=== PATIENT | female | born 1975 | race Caucasian/White ===

== ENCOUNTER 2019-05-01 06:30 | Day surgery (SDC) | payer BC ==
--- OUTSIDE RECORDS SUMMARY | 2019-05-01 06:32 | XMS REPORT ---
:1975 Author Organization e[employer]Works Care Team Providers Name Role Phone Marcus Patten Provider Role Unavailable Allergies, Adverse Reactions, Alerts Substance Reaction Event Type N.K.D.A. Info Not Available Non Drug Allergy Problems Problem Type Condition Code Onset Dates Condition Status Assessment Menorrhagia with regular cycle N92.0 Active Problem Encounter for screening mammogram Z12.31 Active for breast cancer Problem Encounter for gynecological Z01.419 Active examination without abnormal finding Problem Menorrhagia with regular cycle N92.0 Active Assessment Encounter for screening mammogram Z12.31 Active for breast cancer Assessment Uterine leiomyoma, unspecified D25.9 Active location Problem Uterine leiomyoma, unspecified D25.9 Active location Assessment Encounter for gynecological Z01.419 Active examination without abnormal finding Medications Medication Code Code Instructions Start End Date Status Dosage System Date Metaproterenol [facility] 10010-54 Active not defined Sulfate 59-01 Results Name Result Date Reference Range Unit Abnormality Flag URINALYSIS AUTO W/O SCOPE (52135) ----NIT Neg [id number] ----URO 0.2 20170712 ----PROTEIN Neg [id number] ----pH 7.0 20170712 ----BLO Neg [id number] ----GLUCOSE Neg [id number] ----JANAK Neg [id number] ----BILIRUBIN Neg [id number] ----KETONES Neg [id number] ----SPECIFIC GRAVITY 1.020 20170712 Summary Purpose [employer] Submission
--- OUTSIDE RECORDS SUMMARY | 2019-05-01 06:32 | XMS REPORT ---
:1975 Author Organization [employer] Care Team Providers Name Role Phone Marcus Patten Provider Role Unavailable Allergies No Known Allergies Problems Problem Type Condition Code Onset Dates Condition Status Problem Encounter for screening mammogram Z12.31 Active for breast cancer Problem Encounter for gynecological Z01.419 Active examination without abnormal finding Problem Menorrhagia with regular cycle N92.0 Active Problem Uterine leiomyoma, unspecified D25.9 Active location Medications No Known Medications Results No Known Results Summary Purpose [employer] Submission
--- OUTSIDE RECORDS SUMMARY | 2019-05-01 06:32 | XMS REPORT ---
[...] Menorrhagia with regular cycle N92.0 Active Assessment Menorrhagia with regular cycle N92.0 Active Problem Uterine leiomyoma, unspecified D25.9 Active location Assessment Uterine leiomyoma, unspecified D25.9 Active location Medications Medication Code Code Instructions Start End Status Dosage System Date Date Metaproterenol [facility] [address]-85 Active not Sulfate defined Lo Loestrin Fe [facility] 08065136863 1 MG-10 MCG / Active 1 tablet 10 MCG Orally Once a day Results No Known Results Summary Purpose [employer]ClinicalWorks Submission
--- OUTSIDE RECORDS SUMMARY | 2019-05-01 06:32 | XMS REPORT ---
:1975 Author Organization eClinicalWorks Care Team Providers Name Role Phone Marcus Patten Provider Role Unavailable Allergies, Adverse Reactions, Alerts Substance Reaction Event Type N.K.D.A. Info Not Available Non Drug Allergy Problems Problem Type Condition Code Onset Dates Condition Status Assessment Anemia, unspecified type D64.9 Active Problem Uterine leiomyoma, unspecified D25.9 Active location Problem Menorrhagia with regular cycle N92.0 Active Problem Anemia, unspecified type D64.9 Active Assessment Menorrhagia with regular cycle N92.0 Active Problem Encounter for screening mammogram Z12.31 Active for breast cancer Problem Encounter for gynecological Z01.419 Active examination without abnormal finding Medications Medication Code Code Instructions Start End Status Dosage System Date Date Lo Loestrin Fe [facility] 68267592151 1 MG-10 MCG / Active 1 tablet 10 MCG Orally Once a day Metaproterenol [facility] [address]-85 Active not Sulfate defined Results No Known Results Summary Purpose [facility] Submission
--- OUTSIDE RECORDS SUMMARY | 2019-05-01 06:32 | XMS REPORT ---
:1975 Author Organization eClinicalWorks Care Team Providers Name Role Kierra Rodrigo Nora Provider Role Unavailable Allergies, Adverse Reactions, Alerts Substance Reaction Event Type N.K.D.A. Info Not Available Non Drug Allergy Problems Problem Type Condition Code Onset Dates Condition Status Assessment Pharyngitis, unspecified etiology J02.9 Active Problem Anemia, unspecified type D64.9 Active Problem Uterine leiomyoma, unspecified D25.9 Active location Problem Essential hypertension I10 Active Problem Encounter for gynecological Z01.419 Active examination without abnormal finding Problem Menorrhagia with regular cycle N92.0 Active Problem Encounter for screening mammogram Z12.31 Active for breast cancer Medications Medication Code Code Instructions Start End Status Dosage System Date Date Augmentin [facility] 26088017560 875-125 MG Dec 10, Active 1 tablet Orally every 12 2018 hrs Toprol XL [facility] [address]-96 Active not defined Lo Loestrin Fe [facility] 80363022318 1 MG-10 MCG / Active 1 tablet 10 MCG Orally Once a day Results Name Result Date Reference Range Unit Abnormality Flag STREP A RAPID ----Result Positive [id number] Summary Purpose [employer]ClinicalWorks Submission
[2019-05-01] MEDS ORDERED: propofoL 200 MG/20 ML VIAL IV ONE (06:47)
[2019-05-01] MEDS ORDERED: FENTANYL CITR 100 MCG/2 ML ONE (06:48)
[2019-05-01] MEDS ORDERED: LIDOCAINE 2% MPF 5 ML VIAL ONE (06:48)
[2019-05-01] MEDS ORDERED: ONDANSETRON 4 MG/2 ML VIAL ONE (06:50)
[2019-05-01] MEDS ORDERED: MIDAZOLAM HCL 2 MG/2 ML INJ ONE (06:50)
[2019-05-01] MEDS ORDERED: Ringers Lactate 1,000 ML IV ONE (07:09)
[2019-05-01 08:39] VITALS: O2SAT 100
[2019-05-01 11:09] VITALS: BP 119/69; TEMP 98.3
--- NOTE | 2019-05-01 15:19 | OP ---
Date of Procedure: 05/01/2019 Surgeon: Kalyani Torres MD Preoperative Diagnosis: Menorrhagia, leiomyomata, dysmenorrhea. Postoperative Diagnosis: Menorrhagia, leiomyomata, dysmenorrhea. Procedure Performed: Hysteroscopy, dilation and curettage with MyoSure Lite. Anesthesia: General. Specimens: Endometrial curettings. Complications: No complications. Drains: No drains. Condition: Stable. Findings: Intrauterine cavity large, impression of a fibroid in the anterior wall. No evidence of i ntracavitary polyps or lesions. Endometrium thickened, cavity enlarged at least 10-12 cm in sounding length. Indications For Procedure: Patient is a 43-year-old with heavy bleeding, palpable enlarged uterus. Transvaginal ultrasound confirmed a 7 cm fibroid, stripe, thickened cavity with possible mass or the endometrium itself or a polyp versus a fibroid in the cavity. So, for cavity visualization and sampl ing to rule out leiomyosarcoma, atypia, or malignancy of the endometrium. She was brought into the ospital for visualization and removal of a polyp or mass if seen and good sampling of the endometrium to rule out as dictated above. Description Of Procedure: After informed consent was verified, she was taken back to OR, placed in a supine fashion on the operating table. General anesthesia was given. Vulva, vagina, and perineum w ere prepped and draped in a sterile fashion. A speculum was placed to expose the cervix. Anterior l ip grasped with 2 Allis clamps and diagnostic hysteroscopy was performed with the MyoSure lens, and a fter the cavity was entered, there were no masses found and findings as above. The MyoSure Lite deric ce was introduced into the uterine cavity and the myometrium was sampled adequately. The part of the fibroid anteriorly was also sampled going into the myometrium slightly. After the scope was removed, curettings were further performed. After this was handed off for perman ent pathology, instrument, needle, and sponge counts were done and were correct at the end of the magdy e. EBL, less than 100. She was bleeding heavily at the end of the procedure, so vaginal packing was placed. This will be removed at the time of discharge and we will monitor her bleeding. Likely fro m the myometrial biopsy, the bleeding could be heavy. We will give appropriate instructions to the p atient to call with heavy bleeding. After the sampling results are available, then we will decide th e further treatment plan for this patient. The fluid deficit for normal saline was 1000 when this wa s used. Then, the MyoSure Lite device was used for resection of the endometrium and sampling of the myometrium. Patient was extubated in the OR and taken to the PACU in stable condition. She will fol low up with me in 1 week. JL/DEAN Voice ID: [id number] Report ID: [id number]
[2019-05-05] MEDS ORDERED: MEDROXYPROGEST ACET 150 MG/ML IM SCH (21:00)
== END 2019-05-01 10:35 | disposition home or self-care (01) ==
LOC: OR 06:30
PROVIDERS: ATTEND Obstetrics & Gynecology
PROC: 0UJD8ZZ Inspection of Uterus and Cervix, Via Natural or Artificial Opening Endoscopic (ICD-10-PCS; 2019-05-01)
PROC: 0UDB7ZX Extraction of Endometrium, Via Natural or Artificial Opening, Diagnostic (ICD-10-PCS; principal; 2019-05-01 07:30)
DX: N92.0 Excessive and frequent menstruation with regular cycle (principal); D25.9 Leiomyoma of uterus, unspecified; N94.6 Dysmenorrhea, unspecified; I10 Essential (primary) hypertension; Z82.49 Family history of ischemic heart disease and other diseases of the circulatory system
CPT/HCPCS: 81025; 88305; 58558; J2704; J2250; J3010; J7120; J2405

== ENCOUNTER 2019-05-05 18:36 | Inpatient (IN) | payer BC ==
--- OUTSIDE RECORDS SUMMARY | 2019-05-05 18:40 | XMS REPORT ---
[...] End Date Status Dosage System Date Metaproterenol [facility] 62464-91 Active not defined Sulfate 59-01 Results Name Result Date Reference Range Unit Abnormality Flag URINALYSIS AUTO W/O SCOPE (03720) ----NIT Neg [id number] ----URO 0.2 20170712 ----PROTEIN Neg [id number] ----pH 7.0 20170712 ----BLO Neg [id number] ----GLUCOSE Neg [id number] ----JANAK Neg [id number] ----BILIRUBIN Neg [id number] ----KETONES Neg [id number] ----SPECIFIC GRAVITY 1.020 [id number] Summary Purpose [employer] Submission
--- OUTSIDE RECORDS SUMMARY | 2019-05-05 18:40 | XMS REPORT ---
[...] Dosage System Date Date Lo Loestrin Fe [facility] 51195226876 1 MG-10 MCG / Active 1 tablet 10 MCG Orally Once a day Metaproterenol [facility] [address]-20 Active not Sulfate defined Results No Known Results Summary Purpose On license of [facility] Submission
--- OUTSIDE RECORDS SUMMARY | 2019-05-05 18:40 | XMS REPORT ---
[...] End Status Dosage System Date Date Augmentin [facility] 29926915081 875-125 MG Dec 10, Active 1 tablet Orally every 12 2018 hrs Toprol XL [facility] [address]-96 Active not defined Lo Loestrin Fe [facility] 28702311576 1 MG-10 MCG / Active 1 tablet 10 MCG Orally Once a day Results Name Result Date Reference Range Unit Abnormality Flag STREP A RAPID ----Result Positive [id number] Summary Purpose [employer]ClinicalWorks Submission
--- OUTSIDE RECORDS SUMMARY | 2019-05-05 18:40 | XMS REPORT ---
:1975 Author Organization [employer] Care Team Providers Name Role Phone Marcus [...] Medications Results No Known Results Summary Purpose [employer] Submission
--- OUTSIDE RECORDS SUMMARY | 2019-05-05 18:40 | XMS REPORT ---
[...] End Status Dosage System Date Date Metaproterenol [facility] [address]-02 Active not Sulfate defined Lo Loestrin Fe [facility] 79188554728 1 MG-10 MCG / Active 1 tablet 10 MCG Orally Once a day Results No Known Results Summary Purpose eClinicalWorks Submission
[2019-05-05] MEDS ORDERED: Ringers Lactate 1,000 ML IV ONE ×2 (19:09→23:24)
[2019-05-05] MEDS ORDERED: METHYLERGONOVINE 0.2MG/ML AMP IM ONE (19:10)
[2019-05-05 19:37] LABS: Absolute Lymphocytes (CBC) 2.1 K/uL (0.7-4.9); Basophils % 0.7 % (0-1.3); Hematocrit 30.1 % (36.0-45.0); Lymphocytes % 29.6 % (15.3-44.8); MPV 8.9 fL (7.6-11.3)
[2019-05-05 19:40] LABS: Potassium 3.6 mmol/L (3.5-5.1)
[2019-05-05] MEDS ORDERED: FENTANYL CITR 100 MCG/2 ML ONE (20:15)
[2019-05-05] MEDS ORDERED: MEDROXYPROGEST ACET 150 MG/ML IM ONE (20:40)
[2019-05-05 20:55] LABS: Hematocrit 29.8 % (36.0-45.0); MPV 8.7 fL (7.6-11.3)
--- NOTE | 2019-05-05 21:31 | EDPHYS ---
Physician Documentation [facility] Name: Melvi Garcia Age: 43 yrs Sex: Female : 1975 Arrival Date: 05/05/2019 Time: 18:56 Bed 28 Private MD: ED Physician Parisa Rosales HPI: 05/04 19:11 This 43 yrs old Female presents to ER via Unassigned with complaints of snw vaginal bleeding. 19:11 The patient presents with vaginal bleeding that is heavy, with clots. Onset: The snw symptoms/episode began/occurred suddenly, 1 hour(s) ago, and became worse and became persistent. Associated signs and symptoms: Pertinent positives: vaginal bleeding, dizziness, lightheadedness. Severity of symptoms: At their worst the symptoms were severe. The patient has not experienced similar symptoms in the past. The patient has been recently seen by a physician: Dr. Torres. pt had hysteroscopy for biopsy of fibroid on . Hemorrhage started about one hour prior to arrival. Historical: - Allergies: 20:43 No Known Allergies; ls4 - Home Meds: 20:43 metoprolol tartrate 50 mg Oral tab once daily [Active]; ls4 - PMHx: 20:43 Hypertension; ls4 - PSHx: 20:43 None; ls4 - Immunization history:: Adult Immunizations up to date. - Social history:: Smoking status: Patient denies any tobacco usage or history of. ROS: 19:09 Constitutional: Negative for fever, chills, and weight loss, Eyes: Negative for injury, snw pain, redness, and discharge, ENT: Negative for injury, pain, and discharge, Neck: Negative for injury, pain, and swelling, Cardiovascular: Negative for chest pain, palpitations, and edema, Respiratory: Negative for shortness of breath, cough, wheezing, and pleuritic chest pain, Abdomen/GI: Negative for abdominal pain, nausea, vomiting, diarrhea, and constipation, Back: Negative for injury and pain, MS/Extremity: Negative for injury and deformity, Skin: Negative for injury, rash, and discoloration, Neuro: Negative for headache, weakness, numbness, tingling, and seizure, Psych: Negative for depression, anxiety, suicide ideation, homicidal ideation, and hallucinations. 19:09 : Positive for vaginal bleeding. Exam: 19:03 Constitutional: This is a well developed, well nourished patient who is awake, alert, snw and in mild acute distress. Head/Face: Normocephalic, atraumatic. Eyes: Pupils equal round and reactive to light, extra-ocular motions intact. Lids and lashes normal. Conjunctiva and sclera are non-icteric and not injected. Cornea within normal limits. Periorbital areas with no swelling, redness, or edema. ENT: Nares patent. No nasal discharge, no septal abnormalities noted. Tympanic membranes are normal and external auditory canals are clear. Oropharynx with no redness, swelling, or masses, exudates, or evidence of obstruction, uvula midline. Mucous membranes moist. Neck: Trachea midline, no thyromegaly or masses palpated, and no cervical lymphadenopathy. Supple, full range of motion without nuchal rigidity, or vertebral point tenderness. No Meningismus. Chest/axilla: Normal chest wall appearance and motion. Nontender with no deformity. No lesions are appreciated. Cardiovascular: Regular rate and rhythm with a normal S1 and S2. No gallops, murmurs, or rubs. Normal PMI, no JVD. No pulse deficits. Respiratory: Lungs have equal breath sounds bilaterally, clear to auscultation and percussion. No rales, rhonchi or wheezes noted. No increased work of breathing, no retractions or nasal flaring. Abdomen/GI: Soft, non-tender, with normal bowel sounds. No distension or tympany. No guarding or rebound. No evidence of tenderness throughout. Back: No spinal tenderness. No costovertebral tenderness. Full range of motion. Pelvic Exam: Normal external genitalia. Speculum exam with open cervical os, bleeding steadily. large clots filling vaginal vault. Normal uterus. packed with kerlix. Skin: Warm, dry with normal turgor. Normal color with no rashes, no lesions, and no evidence of cellulitis. MS/ Extremity: Pulses equal, no cyanosis. Neurovascular intact. Full, normal range of motion. 19:03 Neuro: shaky, states dizziness. Vital Signs: 18:56 BP 136 / 86; Pulse 61; Resp 14; Temp 98.5(O); Pulse Ox 100% on R/A; Pain 4/10; ls4 20:00 BP 130 / 77; Pulse 58; Resp 14; Pulse Ox 100% on R/A; Weight 61.23 kg; Height 5 ft. 4 ls4 in. (162.56 cm); Pain 3/10; 22:17 BP 128 / 74; Pulse 62; Resp 14; Temp 98.4; Pulse Ox 99% on R/A; Pain 3/10; ls4 20:00 Body Mass Index 23.17 (61.23 kg, 162.56 cm) ls4 MDM: 19:09 Data reviewed: vital signs, nurses notes. Data interpreted: Pulse oximetry: on room air snw is 100 %. Interpretation: hypoxia. Plan: O2 by Mask applied. Counseling: I had a detailed discussion with the patient and/or guardian regarding: the historical points, exam findings, and any diagnostic results supporting the discharge/admit diagnosis. Physician consultation: Kalyani Torres MD was called at 19:10, regarding consult, patient's condition, need to come to ED to see patient, answering service contacted and Dr. Torres's cell called - messages left with both. 19:20 Patient medically screened. snw 20:33 Physician consultation: in the emergency department to see patient at 20:05. ED course: snw Spoke with Dr. Torres, instructed to remove kerlix, obtain 2nd H/H now as she is on her way to ED for eval. 20:52 Physician consultation: Dr. Torres attempting transfer to [facility] for uterine artery snw embolization. 21:23 ED course: Pt pale, doughy, HR 77 bpm, Dr. Torres at bedside placing intrauterine, snw balloon. 05/04 18:56 Order name: Basic Metabolic Panel; Complete Time: 19:41 ls4 05/04 18:56 Order name: CBC with Diff; Complete Time: 19:41 ls4 05/04 18:56 Order name: Type And Screen [facility] 05/04 19:52 Order name: Bb Add On snw 05/04 19:54 Order name: Packed Rbc Leukored As-1 snw 05/04 19:55 Order name: ABO/RH typing EDID 05/04 19:55 Order name: Antibody Screen [facility] 05/04 20:43 Order name: CBC w/o diff; Complete Time: 21:09 ls4 05/04 21:30 Order name: Packed RBCs (Additional Unit) EDMS 05/04 22:51 Order name: CBC with Automated Diff EDMS 05/04 18:56 Order name: IV Saline Lock; Complete Time: 19:03 ls4 05/04 18:56 Order name: Labs collected and sent; Complete Time: 19:03 ls4 05/04 18:56 Order name: NPO; Complete Time: 19:03 ls4 05/04 18:56 Order name: Urine Dipstick-Ancillary (obtain specimen); Complete Time: 19:33 ls4 05/04 19:54 Order name: Consent for Blood Transfusion; Complete Time: 21:22 snw 05/04 19:54 Order name: IV Saline Lock; Complete Time: 20:54 snw 05/04 19:55 Order name: Misc. Order: repeat CBC at 2100; Complete Time: 20:53 snw Administered Medications: 19:10 Drug: METHERgine 0.2 mg Route: IM; Site: right deltoid; ls4 19:32 Follow up: Response: No adverse reaction ls4 19:10 Drug: Lactated Ringers Solution 1000 ml Route: IV; Rate: 150 ml/hr; Site: right ls4 antecubital; 20:10 Drug: fentaNYL (PF) 25 mcg Route: IVP; Site: left antecubital; ls4 20:30 Follow up: Response: No adverse reaction ls4 21:23 Drug: DepoProvera - medroxyPROGESTERone 150 mg Route: IM; Site: left deltoid; ls4 21:24 Follow up: Response: No adverse reaction ls4 22:11 Follow up: Response: No adverse reaction ls4 Disposition: 05/05 01:33 Co-signature as Attending Physician, Parisa Rosales MD. ma2 Disposition: 05/05/19 21:31 Hospitalization ordered by Kalyani Torres for Observation. Preliminary diagnosis are Abnormal uterine and vaginal bleeding, unspecified, Anemia, unspecified. - [facility]. - Status is Observation. ls4 - Condition is Stable. - Problem is new. - Symptoms have worsened. Signatures: Dispatcher [employer] EDID Martha Flowers, CLOTH CUTTER-C CLOTH CUTTER-Csnw Alie Bailey, Parisa Quintana RN, MD MD ma2 Citlalli Black, RN RN ls4 Corrections: (The following items were deleted from the chart) 05/04 19:41 18:57 ABO/RH TYPING+[id number].LAB.BRZ ordered. EDID EDMS 21:58 21:31 Hospitalization Ordered by Kalyani Torres MD for Observation. Preliminary cg diagnosis is Abnormal uterine and vaginal bleeding, unspecified; Anemia, unspecified. Bed [facility]. Status is Observation. Condition is Stable. Problem is new. Symptoms have worsened. snw 23:15 21:58 05/05/2019 21:31 Hospitalization Ordered by Kalyani Torres MD for Observation. ls4 Preliminary diagnosis is Abnormal uterine and vaginal bleeding, unspecified; Anemia, unspecified. Bed requested for [facility]. Status is Observation. Condition is Stable. Problem is new. Symptoms have worsened. cg
--- NOTE | 2019-05-05 21:31 | ER ---
Nurse's Notes [facility] Name: Melvi Garcia Age: 43 yrs Sex: Female : 1975 Arrival Date: 05/05/2019 Time: 18:56 Bed 28 Private MD: Diagnosis: Abnormal uterine and vaginal bleeding, unspecified;Anemia, unspecified Presentation: 05/04 18:56 Chief complaint: EMS states: Pt HAD PROCEDURE DONE A FEW DAYS AGO AND IS NO ls4 "HEMORRHAGING". PT HAS VAGINAL BLEEDING. 18:56 Coronavirus screen: The patient has NOT traveled to a country currently being monitored ls4 by the [facility] within the last 14 days. Proceed with normal triage procedures. Ebola Screen: No symptoms or risks identified at this time. 18:56 Method Of Arrival: EMS: [facility] ls4 20:00 Initial Sepsis Screen: Does the patient meet any 2 criteria? No. Patient's initial ls4 sepsis screen is negative. Does the patient have a suspected source of infection? No. Patient's initial sepsis screen is negative. Risk Assessment: Do you want to hurt yourself or someone else? Patient reports no desire to harm self or others. Care prior to arrival: Medication(s) given: Normal saline infusion, 500 mL, IV initiated. 20 GA, in the left antecubital area. 20:00 Acuity: NAVEED 2 ls4 Triage Assessment: 18:56 General: Appears comfortable, uncomfortable, Behavior is calm, cooperative. ls4 18:56 Pain: Denies pain. Neuro: Level of Consciousness is awake, alert, Oriented to person, ls4 place, time, situation. Cardiovascular: Reports None Denies chest pain, diaphoresis, fatigue, lightheadedness, nausea, palpitations, shortness of breath, syncope, vomiting, Capillary refill < 3 seconds Patient's skin is warm and dry. Respiratory: Airway is patent Respiratory effort is even, unlabored, Respiratory pattern is regular. GI: No deficits noted. : Reports vaginal bleeding that is bright red, with clots, heavy flow STARTED HEAVILY LAST NIGHT. AND INCREASED TODAY. Derm: No deficits noted. No signs and/or symptoms reported regarding the dermatologic system. Musculoskeletal: No deficits noted. No signs and/or symptoms reported regarding the musculoskeletal system. Historical: - Allergies: 20:43 No Known Allergies; ls4 - Home Meds: 20:43 metoprolol tartrate 50 mg Oral tab once daily [Active]; ls4 - PMHx: 20:43 Hypertension; ls4 - PSHx: 20:43 None; ls4 - Immunization history:: Adult Immunizations up to date. - Social history:: Smoking status: Patient denies any tobacco usage or history of. Screenin:53 Abuse screen: Denies threats or abuse. Denies injuries from another. Nutritional ls4 screening: No deficits noted. Tuberculosis screening: No symptoms or risk factors identified. Fall Risk None identified. Assessment: 19:15 Reassessment: Patient appears in no apparent distress at this time. JODEE RAPP IN ls4 ROOM DOING PELVIC EXAM. ASSISTED WITH SET UP AND CHAPERONED BY PIOTR. PT TOLERATED WELL. 19:15 : SEE SLACKLINE OPERATOR NOTE. ls4 20:00 Reassessment: Patient appears in no apparent distress at this time. Patient and/or ls4 family updated on plan of care and expected duration. Pain level reassessed. Patient is alert, oriented x 3, equal unlabored respirations, skin warm/dry/pink. PT REPORTS THAT SHE HAS INCREASED CRAMPING. JODEE NOTIFIED. ORDER FOR FENTANYL RECEIVED. AND GIVEN. 21:00 Reassessment: Patient appears in no apparent distress at this time. Patient and/or ls4 family updated on plan of care and expected duration. Pain level reassessed. Patient is alert, oriented x 3, equal unlabored respirations, skin warm/dry/pink. DR TORRES AT BEDSIDE WITH KYLE PRE[employer] TRAFFIC SUPERINTENDENT AND ASSISTING. SEE DR GARCIA NOTE. 21:51 General: SEE TRIAGE. Pain: Complains of pain in suprapubic area Pain currently is 2 out ls4 of 10 on a pain scale. Neuro: Level of Consciousness is awake, alert, obeys commands. Cardiovascular: Capillary refill < 3 seconds Patient's skin is warm and dry. Respiratory: Airway is patent Respiratory effort is even, unlabored, Breath sounds are clear bilaterally. Vital Signs: 18:56 BP 136 / 86; Pulse 61; Resp 14; Temp 98.5(O); Pulse Ox 100% on R/A; Pain 4/10; ls4 20:00 BP 130 / 77; Pulse 58; Resp 14; Pulse Ox 100% on R/A; Weight 61.23 kg; Height 5 ft. 4 ls4 in. (162.56 cm); Pain 3/10; 22:17 BP 128 / 74; Pulse 62; Resp 14; Temp 98.4; Pulse Ox 99% on R/A; Pain 3/10; ls4 20:00 Body Mass Index 23.17 (61.23 kg, 162.56 cm) ls4 ED Course: 18:50 Patient arrived in ED. aa5 18:55 Initial lab(s) drawn, by me, sent to lab. Inserted saline lock: 18 gauge in right aa5 antecubital area, using aseptic technique. Blood collected. 18:56 Maintain EMS IV. Dressing intact. Good blood return noted. Site clean \\T\\ dry. Gauge \\T\\ ls 4 site: 20 G RT AC. 18:56 Patient maintains SpO2 saturation greater than 95% on room air. ls4 18:57 Citlalli Black RN is Primary Nurse. ls4 18:57 Pulse ox on. NIBP on. ls4 18:57 Arm band placed on. ls4 19:00 Jodee Rapp FNP-C is [facility]. snw 19:00 Parisa Rosales MD is Attending Physician. snw 20:28 Triage completed. ls4 20:30 Assist provider with pelvic exam: Performed by Kalyani Torres MD Patient tolerated mb4 well. 20:44 ABO/RH typing Sent. ls4 20:54 Antibody Screen Sent. ls4 20:54 Bb Add On Sent. ls4 20:55 Safety checks: Family/friend present: yes. Bed in low position. Call light in reach. mb4 Side rails up X 1. Warm blanket given. Linen changed. 21:29 Kalyani Torres MD is Hospitalizing Provider. snw Administered Medications: 19:10 Drug: METHERgine 0.2 mg Route: IM; Site: right deltoid; ls4 19:32 Follow up: Response: No adverse reaction ls4 19:10 Drug: Lactated Ringers Solution 1000 ml Route: IV; Rate: 150 ml/hr; Site: right ls4 antecubital; 20:10 Drug: fentaNYL (PF) 25 mcg Route: IVP; Site: left antecubital; ls4 20:30 Follow up: Response: No adverse reaction ls4 21:23 Drug: DepoProvera - medroxyPROGESTERone 150 mg Route: IM; Site: left deltoid; ls4 21:24 Follow up: Response: No adverse reaction ls4 22:11 Follow up: Response: No adverse reaction ls4 Outcome: 21:31 Decision to Hospitalize by Provider. snw 22:16 Admitted to L \\T\\ D, Report called to MADISON BARRAGAN RN ls4 22:41 Condition: stable ls4 22:41 Instructed on the need for admit. 23:15 Patient left the ED. ls4 Signatures: Jodee Rapp, GRANULATOR OPERATOR-C GRANULATOR OPERATOR-Csnw Tawanna Lopez RN RN aa5 Bela Pretty mb4 Citlalli Black RN RN ls4 Corrections: (The following items were deleted from the chart) 19:03 18:56 Patient arrived in ED. ls4 aa5 21:50 20:57 Pulse ox on. NIBP on. mb4 ls4 22:30 20:00 Reassessment: Patient appears in no apparent distress at this time. Patient ls4 and/or family updated on plan of care and expected duration. Pain level reassessed. Patient is alert, oriented x 3, equal unlabored respirations, skin warm/dry/pink. ls4
[2019-05-05 22:50] LABS: Basophils % 0.4 % (0-1.3); Hematocrit 29.9 % (36.0-45.0); Lymphocytes % 7.8 % (15.3-44.8); MPV 9.3 fL (7.6-11.3); RBC Red Blood Cell Count 3.28 M/uL (3.86-4.86)
[2019-05-05 23:24] LABS: Blood Morphology Comment NOT SEEN (NOT SEEN); Platelet Estimate ADEQ
[2019-05-06 00:16] VITALS: BMI 3254.6
[2019-05-06] MEDS ORDERED: CEFAZOLIN 2 GM in NA CHLORIDE 0.9% 100 ML IVPB SCH (00:45)
[2019-05-06] MEDS ORDERED: MORPHINE 2 MG/ML SYR IV PRN (00:45)
[2019-05-06] MEDS ORDERED: Ringers Lactate 1,000 ML IV SCH (00:45)
--- NOTE | 2019-05-06 01:48 | HP ---
Date of Admission: 05/05/2019 Admitting Diagnoses: Menorrhagia, fibroid, and acute increase in bleeding and pelvic pain History Of Present Illness: Patient is a 43-year-old postoperative day #4 after hysteroscopy, endome trial curettage and biopsy of the myoma hysteroscopically with MyoSure who had significant bleeding a t the time of the procedure, but completely stopped, was discharged home and had no bleeding for 3 da ys, restarted bleeding last night with a gush of blood, but this evening her bleeding had been bright red and continuous. Patient was not feeling well and had pain and came into the ER. No lower urina ry tract symptoms. No bowel problems. No other issues. Review of Systems: Negative. No respiratory, cardiovascular, or neurological symptoms. She has mild nausea that is int ermittent. Past Medical History: Significant for hypertension. Current Medications: Metoprolol 50 mg daily once a day. Allergies: NO KNOWN DRUG ALLERGIES. Past Surgical History: Tubal ligation in 2007, LASIK surgery in 1999, wisdom teeth in 1998. Family History: Hypertension. No breast, ovarian, uterine, or colon cancers. Social History: No tobacco, occasional alcohol, no drug use. Gynecologic History: She is 4, para 4, and all 4 vaginal deliveries and she had a tubal ligation. Physical Examination: Vital Signs: Her temperature 98.5, 136/86 blood pressure, 61 pulse, 14 respirations, and saturating 100% on room air. General: She appeared to be slightly pale, diaphoretic, but no other acute distress. Head and Neck: Slight pallor. Anicteric. Neck; no jugular venous distention or adenopathy. Lungs: Clear. Heart: Regular in rate and rhythm. Abdomen: Soft, nondistended. Minimally tender in the suprapubic area. No rebound. No hepatospleno megaly or hernia. Extremities: No edema or calf tenderness. Pelvic: Vulva and vagina pink, normal. Labia normal. Bartholin's periurethral and Buchtel's glands n egative. Vagina with some clots and the cervix slightly dilated and on clearing the clot there is a good amount of bright red bleeding coming through the cervix that was visualized after a couple of mi nutes of observation and the blood was ongoing. Uterine exam performed and about 12 to 14 week sized , the myoma palpable, slightly tender. No adnexal tenderness. No cervical motion tenderness. Specu lum removed and pad counts started. Patient had a transvaginal ultrasound in the office, she has a 7 cm leiomyoma that probably is the re ason for her heavy bleeding. Also has urinary frequency due to this. Her hemoglobin here 10 g to start with and the repeat was 10 g, which is being repeated to verify whe ther it is reliable. Assessment And Plan: 1.Menorrhagia from abnormal uterine bleeding from leiomyomata, likely sampling was done about 4 days ago. The report was reviewed today in [facility] and had chronic endometritis, benign leiomyoma, and no atypia or malignancy. So plan is to perform a hysterectomy for treatment of her bleeding and this can be done later tomorrow morning as the patient is continuing to bleed. 2.Leiomyoma. No evidence of any leiomyosarcoma, so safe to go onto doing a laparoscopic hysterectom y and then possibly morcellation. Discussed about the options of uterine artery embolization observa tion and treatment with medication, depot medroxyprogesterone has been given at this time to stop her bleeding acutely. Patient's options of myomectomy and the medical treatment like Lupron were all re viewed with the patient. Risks of hysterectomy including bleeding, infection, injury to the bowel, b ladder, ureters, and possibly mini lap, recovery time of the surgery were all reviewed with the patie nt, her mom, and her , everyone was present in the room and consented for the procedure. We w ill give 2 g of Ancef prior to surgery. 3.Blood-loss anemia, likely acute. Plan serial H and H. we will admit the patient overnight and ob serve. We will keep a pad count. If there is significantly increased flow, then plan is to place ei ther a 30 mL Johns balloon or a Bakri balloon inside the uterine cavity for occlusion and then procee d with the surgery in the morning. Cereal I's and O's will be kept. She will be kept n.p.o., LR to be started. Attempted to transfer the patient for any acute uterine artery embolization, but [facility] or interventional procedures not available at night until tomorrow. It can be talked to Vinayak villarreal after being connected from transfer center, so plan is to keep the patient here in-hous e and patient and the are aware that there are no interventional services here in our [facility] lIndra PARIKH/DEAN Voice ID: [id number]
[2019-05-06 03:43] LABS: Hematocrit 27.2 % (36.0-45.0)
[2019-05-06] MEDS ORDERED: MORPHINE 4 MG/ML SYR IV PRN (07:16)
[2019-05-06] MEDS ORDERED: METOPROLOL TAR 50 MG TAB PO ONE (08:00)
[2019-05-06] MEDS ORDERED: ONDANSETRON 4 MG/2 ML VIAL ONE (08:03)
[2019-05-06] MEDS ORDERED: Ringers Lactate 1,000 ML IV ONE ×2 (08:05→11:37)
[2019-05-06] MEDS ORDERED: dexAMETHasone 10 MG/ML VIAL ONE (08:12)
[2019-05-06] MEDS ORDERED: FENTANYL CITR 250 MCG/5 ML ONE (08:12)
[2019-05-06] MEDS ORDERED: ROCURONIUM 50 MG/5 ML VIAL IV ONE (08:12)
[2019-05-06] MEDS ORDERED: LIDOCAINE 2% MPF 5 ML VIAL ONE (08:12)
[2019-05-06] MEDS ORDERED: propofoL 200 MG/20 ML VIAL IV ONE (08:12)
[2019-05-06] MEDS ORDERED: MIDAZOLAM HCL 2 MG/2 ML INJ ONE (08:13)
[2019-05-06] MEDS ORDERED: CEFAZOLIN/SWI 1gm 2 GM/20 ML SYR ONE (08:49)
[2019-05-06] MEDS: BUPIVACAINE 0.25% PF 30 ML VIAL ONE ×2 (09:35→11:24)
[2019-05-06] MEDS ORDERED: KETOROLAC 30 MG/ML INJ ONE (11:24)
[2019-05-06] MEDS ORDERED: MORPHINE 10 MG/ML VIAL ONE (11:31)
[2019-05-06] MEDS ORDERED: GLYCOPYRROLATE 0.2 MG/ML SYR ONE (11:43)
[2019-05-06] MEDS ORDERED: SCOPOLAMINE HYDROBROMIDE PATCH TD ONE (11:45)
[2019-05-06 12:02] VITALS: O2SAT 100
[2019-05-06] MEDS ORDERED: IBUPROFEN 600 MG TAB PO PRN (12:09)
[2019-05-06] MEDS ORDERED: HYDROCODONE/APAP 5/325 MG TAB PO PRN ×2 (12:11)
[2019-05-06] MEDS ORDERED: PROMETHAZINE INJ 25 MG/ML AMP IV PRN (12:12)
[2019-05-06] MEDS ORDERED: PROMETHAZINE 25 MG TABLET PO PRN (12:13)
[2019-05-06] MEDS ORDERED: MEPERIDINE HCL 25 MG/0.5 ML ONE (12:55)
[2019-05-06 16:36] VITALS: BP 135/77; TEMP 97
[2019-05-07] MEDS ORDERED: METOPROLOL XL 50 MG TAB PO SCH (09:00)
--- NOTE | 2019-05-07 17:46 | OP ---
Date of Procedure: 05/06/2019 Surgeon: Kalyani Torres MD Flat Cutter: Sissy Marte. Preoperative Diagnoses: Heavy menstrual bleeding, leiomyomata. Postoperative Diagnoses: Heavy menstrual bleeding, leiomyomata. Procedure Performed: Total laparoscopic hysterectomy, bilateral salpingectomy, bilateral ovariopexy, vaginal morcellation of the fibroid in the uterus. Anesthesia: General endotracheal. Estimated Blood Loss: Minimal. Complications: None. Drains: None. Condition: Stable. Findings: Large myoma in the midportion of the anterior wall deviating the uterus to the left side. No evidence of endometriosis. Both the ureters undistorted. Description Of Procedure: The patient is a 43-year-old female with heavy bleeding, fibroids, enlarge d uterus, sampled for biopsy. No evidence of chronic endometritis. No evidence of any atypia or mal ignancy. Myoma was benign. So, plan was to proceed with definitive treatment of this. The patient came back on postop day #4 wi th heavy bleeding after 3 days of no bleeding past the hysteroscopic procedure. When she came into t ER on the night before the procedure, she was bleeding heavy and her hemoglobin was down to 10 g, but hemodynamically stable. Progesterone 150 mg was given to the patient. Her bleeding had stopped overnight on observation. However, given the fact that she had restarted bleeding after the biopsy 3 days later, I am worried that this could happen again and recommended to have whatever definitive pr ocedure she was going to have. She was counseled on having uterine artery embolization, myomectomy o r laparoscopic hysterectomy with bilateral salpingectomy. The patient proceeded with a hysterectomy option and so I brought her to the OR. After consent was re-verified, , mom present, bleeding , infection, injury to the bowel, bladder, and ureters all reviewed with the patient. Risk of transf usion as well. Then, she was consented and taken to the OR. 2 g of Ancef given. She was placed in a supine fashion. General anesthesia given, placed in a dorsal lithotomy position in Devonte stirrups. Arms tucked by the side. SCDs started. Time-out done and then the abdomen, vulva, vagina, and per ineum prepped and draped in a sterile fashion. Pelvic exam performed. Uterus anteflexed and mobile. The bilateral sides were free, able to see the impression of the fibroid in the left lower quadrant . Then, Johns was placed to drain the bladder. Large VCare placed in the uterus to manipulate. Thi s area was then draped. A 1 cm infraumbilical incision made after Marcaine injected. Incision on th e fascia and peritoneum sharply. S retractor was placed, Melly introduced. After insufflation, sit e of entry checked, unremarkable. 10 mm suprapubic and 5 mm left lower quadrant ports were placed under direct vision. Patient was brian anita in Trendelenburg and the visualization of both ureters was done without any distortion. They wer e found to be coursing in the normal path without any distortions. Then, both tubes and ovaries unre markable. The fibroid was obstructing the vision of the left broad ligament. There was a tiny littl e fibroid on the round ligament on the right. This was resected. Then, hysterectomy started. The p eritoneum below the left round ligament was picked up, incised, and the bladder flap raised all the w ay to the other side. Then, round ligament taken down, tube taken out with the LigaSure and then marco ro-ovarian ligament and the rest of the mesosalpinx taken down. Then posterior peritoneum taken down to the left uterosacral and then broad ligament taken down to skeletonize the vessels. On the oppos ite side, similar dissection was performed, utero-ovarian ligament taken down mesosalpinx tube, round ligament and broad ligament leaves were . Anterior leaf connected to finish the bladder fl ap and posterior leaf taken to the right uterosacral, than broad ligament taken down to skeletonize t he vessels on the side. The fibroid took all the way down close to the vaginal wall anteriorly where the VCare cup was seen, so carefully the bladder was dissected inferiorly creating space on the ante rior vaginal wall for at least a cm and a half, so then once this was cleared, vessels were taken mariel n. Cardinal ligament on the right then on the left. Then circumferential colpotomy for detaching th e specimen with a monopolar hook blade. After both pedicles were taken down with the help of the LigaSure, then thorough irrigation and sucti on were performed. The uterus was held with the cervix and the vagina with the Allis clamps. Then, tube on the right side was resected completely. The left was already taken. The ovariopexy was perf ormed with 3-0 Monocryl until the base of the round ligament on both sides. Then, went on to vaginal ly morcellate the uterine specimen. The Acosta retractor placed in the posterior aspect and a small D was in the anterior morcellation with a 10 blade of the uterus and the fibroid and the entire specimen was removed vaginally. Once this w as performed, a sponge and a glove was placed for pneumo-occlusion, then went back up after changing gown and gloves. Thorough irrigation and suction performed. 0 Vicryl suture for 2 angle stitches and 3 [id number] ht in the middle resuspending the base of the uterosacral to the apex of the vagina. Excellent closu re and support was optimal. No need for a separate uterosacral suspension stitch was noted. Thoroug h irrigation and suction performed again. Excellent hemostasis at all pedicles. Ovaries unremarkabl e. The gas was desufflated. All ports were removed. All ports were injected with Marcaine at the begin andrea and the end of the procedure. Then, the fascia at the umbilicus closed with a tag of 0 Vicryl s utures tied to each other, simple chromic suture in the subcutaneous tissues, simple 0 Vicryl suture for fascial closure in suprapubic area and all skin incisions closed with the help of 4-0 Vicryl sutu res in interrupted fashion. Johns was removed. Vaginal sponge was removed. Instrument, needle and sponge counts were done and were correct at the end of the case. The patient tolerated the procedure well. She was recovered from anesthesia and taken to PACU in a stable condition. [facility] and then discharged home. She was given scopolamine patch and then Zofran and No rco. JL/FLAKITAL Voice ID: [id number] Report ID: [id number]
== END 2019-05-06 18:30 | disposition home or self-care (01) | DRG 742 ==
LOC: ER 18:36 → ERHOLD 21:54 → 2ND-WC 22:21
PROVIDERS: ADMIT Obstetrics & Gynecology; ATTEND Obstetrics & Gynecology
PROC: 0UT9FZZ Resection of Uterus, Via Natural or Artificial Opening With Percutaneous Endoscopic Assistance (ICD-10-PCS; principal; 2019-05-05)
PROC: 0UT7FZZ Resection of Bilateral Fallopian Tubes, Via Natural or Artificial Opening With Percutaneous Endoscopic Assistance (ICD-10-PCS; 2019-05-05)
PROC: 0US24ZZ Reposition Bilateral Ovaries, Percutaneous Endoscopic Approach (ICD-10-PCS; 2019-05-05)
DX: D25.9 Leiomyoma of uterus, unspecified (principal); D62 Acute posthemorrhagic anemia; N92.0 Excessive and frequent menstruation with regular cycle; I10 Essential (primary) hypertension
CPT/HCPCS: 36415; 80048; 85014; 85018; 85025; 85027; 86850; 86900; 86901; 88305; 88307; 96372; 96374; 99285; J0690; J1050; J1100; J2175; J2210; J2250; J2270; J2405; J2550; J2704; J3010; J7120

== ENCOUNTER → 2023-04-17 | Emergency (ER) | payer BC ==
[~2023-04-17] MED LIST: NA CHLORIDE 0.9% 500 ML ONE
--- OUTSIDE RECORDS SUMMARY | 2023-04-17 20:01 | XMS REPORT | Continuity of Care Document ---
Author Name Unknown Address [address] [facility] [address] [place] [address] [facility] Address [address] [facility] [address] [place] [address] Care Team Providers Care Renewable Energy Engineer Name Role Phone Gaetano Kamara MD Primary Care Physician [phone] [email or web address] Attending Clinician Unavaila ble ELIZABETH GOULD Attending Clinician Unavailable SHELLI SAUER Attending Clinician Unavaila ble LAB90 Attending Clinician Unavailable LAB47 Attending Clinician Unavailable CLARA JONES Attending Clinician Unavailable Clara Jones MD Attending Clinician [phone] KENYA BROWN Attending Clinician Kenya Thomas MD Attending Clinician [phone] [id number] Attending Clinician Unavailable GAETANO KAMARA Attending Clinician Unavailable GIANA COVINGTON Attending Clinician Unavai lable [id number] Attending Clinician Unavailable [email or web address] Admitting Clinician Unavaila ble Payers Payer Name Policy Type Policy Number Effective Date Expirati on Date Source [place] [id number] 2017 00:00:00 BCBS 2 [id number] 2017 00:00:00 Problems Condition Name Condition Details Condition Category Status Onset Date Resolution Date Last Treatment Date Treating Clinician Comments Source Seasonal allergic rhinitis due to pollen Seasonal allergic rhinitis due to pollen Disease Active 2022-02 0-13 00:00: 00 Seema Pollack - Externa beelm Arthralgia of both hands Arthralgia of both hands Disease Active 4 00:00: 00 Seema Pollack - Raha belem Other fatigue Other fatigue Disease Active 4 00:00: 00 Seema Monreala belem Family history of systemic lupus erythemato wyatt Family history of systemic lupus erythemato wyatt Disease Active 06-08 00:00: 00 Seema Monreala belem Right upper quadrant abdominal pain Right upper quadrant abdominal pain Disease Active 06-08 00:00: 00 Seema Monreala belem Well adult exam Well adult exam Disease Active 2021-02 00:00: 00 Seema Monreala belem Gastroesop hageal reflux disease without esophagiti s Gastroesop hageal reflux disease without esophagiti s Disease Active 2021-02 00:00: 00 Seema Monreala belem History of kidney stones History of kidney stones Disease Active 2021-02 00:00: 00 Seema Monreala belem Essential hypertensi on Essential hypertensi on Disease Active 10-13 00:00: 00 Seema Monreala belem Anemia Anemia Disease Active 817 00:00: 00 Seema Goddard Externa belem Iron deficiency anemia Iron deficiency anemia Disease Active 10-13 00:00: 00 Seema Monreala belem Nonrheumat ic mitral valve regurgitat ion Nonrheumat ic mitral valve regurgitat ion Disease Active 8-17 00:00: 00 Seema Pollack - Externa belem Cystic kidney disease Cystic kidney disease Disease Active 10-13 00:00: 00 Seema Pollack MVP (mitral valve prolapse) MVP (mitral valve prolapse) Disease Active 817 00:00: 00 Seema Pollack - Externa belem Musculoske letal neck pain Musculoske letal neck pain Disease Active 06-23 00:00: 00 Seema Pollack - Externa l Menorrhagi a with regular cycle Menorrhagi a with regular cycle Problem Active [facility] Encounter for screening mammogram for breast cancer Encounter for screening mammogram for breast cancer Problem Active [facility] Encounter for gynecologi bushra examinatio n without abnormal finding Encounter for gynecologi bushra examinatio n without abnormal finding Problem Active [facility] Uterine leiomyoma, unspecifie d location Uterine leiomyoma, unspecifie d location Problem Active [facility] Anemia, unspecifie d type Anemia, unspecifie d type Problem Active [facility] Pharyngiti s, unspecifie d etiology Pharyngiti s, unspecifie d etiology Diagnosis Active [facility] Essential hypertensi on Essential hypertensi on Problem Active [facility] Social History Social Habit Start Date Stop Date Quantity Comments Source Gender identity 2020-12-01 11:59:10 Identifies as female gender (finding) Seema Pollack - External Sexual orientation 2020-12-01 11:59:10 Heterosexual (finding) Seema Pollack - External History SDOH Alcohol Frequency Seema figueroa - External History SDOH Alcohol Std Drinks Seema rolle - External History SDOH Alcohol Binge Seema Pollack - External Exposure to SARS-CoV-2 (event) Not sure Seema rolle Alcohol intake 2022-12-09 00:00:00 2022-12-09 00:00:00 .14 /d Seema Pollack - External History of Social function 2022-11-14 00:00:00 2022-11-14 00:00:00 Seema Pollack - External Tobacco use and exposure 2022-06-08 00:00:00 2022-06-08 00:00:00 Smokeless tobacco non-user Seema Pollack - External Alcohol Comment 2021-12-08 00:00:00 2021-12-08 00:00:00 mixed drink weekly, twice per week Seema Pollack - External Education 2021-12-08 00:00:00 2021-12-08 00:00:00 17 Seema Pollack - External Sex Ass[birth year] At 1975 00:00:00 1975 00:[birth year]:00 F Seema Luke Smoking Status Start Date Stop Date Source Never smoked tobacco Seema Groveaquilino Luke Medications Ordered Medication Name Filled Medication Name Start Date Stop Date Current Medication? Ordering Clinician Indication Dosage Frequency Signature (SIG) Comments Components Source Cetirizine 10 MG oral Tablet 2022-02 10:47: 23 Yes 10mg Take 1 tablet (10 mg total) by mouth daily. Seema patricia Cholecalcif ana (Vitamin D3) 20 MCG (800 UNIT) oral Tablet 2022-02 00:00: 00 Yes [id number] 1{tbl} Take 1 tablet by mouth daily. Seema patricia Valsartan 160 MG oral Tablet 2022-02 00:00: 00 Yes [id number] 160mg Take 1 tablet (160 mg total) by mouth daily. Seema patricia Metoprolol Succinate 50 MG oral TABLET SR 24 HR 2022-02 00:00: 00 Yes [id number] 50mg Take 1 tablet (50 mg total) by mouth daily. Seema patricia Triamcinolo ne Acetonide 0.1 % apply externally Cream 2022-02 00:00: 00 01-07 05:59 :00 No [id number] Apply to affected skin twice daily. Seema patricia Valsartan 160 MG oral Tablet 2022-02 00:00: 00 12-09 00:00 :00 No [id number] 160mg Take 1 tablet by mouth once daily Seema patricia Cholecalcif ana (Vitamin D3) 20 MCG (800 UNIT) oral Tablet 06-09 00:00: 00 Yes [id number] 1{tbl} Take 1 tablet by mouth daily Seema patricia Cholecalcif ana (Vitamin D3) 20 MCG (800 UNIT) oral Tablet 06-09 00:00: 00 12-09 00:00 :00 No [id number] 1{tbl} Take 1 tablet by mouth daily Seema patricia Cetirizine 10 MG oral Tablet 06-08 11:22: 13 Yes 10mg Take 1 tablet (10 mg total) by mouth daily Seema patricia Cetirizine 10 MG oral Tablet 06-08 11:22: 13 Yes 10mg Take 1 tablet (10 mg total) by mouth daily Seema patricia acetaZOLAMI DE 125 MG oral Tablet 04-27 00:00: 00 06-08 00:00 :00 No 1 pill twice daily. May start on the day of ascent. May be discontinu ed after staying at the same elevation for 2 to 4 days or if descent is initiated Seema patricia Ibuprofen (MOTRIN OR) 2021-02 09:03: 24 12-08 00:00 :00 No Take by mouth Seema patricia Cetirizine 10 MG oral Tablet 2021-02 08:40: 20 Yes 10mg Take 10 mg by mouth daily Seema patricia Norethin-Et h Estrad-Fe Biphas (Lo Loestrin Fe) 1 MG-10 MCG / 10 MCG oral Tablet 2021-02 07:49: 19 12-08 00:00 :00 No 1{tbl} Take 1 tablet by mouth Seema patricia Valsartan 160 MG oral Tablet 2021-02 00:00: 00 Yes [id number] 160mg Take 1 tablet (160 mg total) by mouth daily Seema patricia Metoprolol Succinate 50 MG oral TABLET SR 24 HR 2021-02 00:00: 00 Yes [id number] 50mg Take 1 tablet (50 mg total) by mouth daily Seema patricia Famotidine (Pepcid) 20 MG oral tablet 2021-02 00:00: 00 Yes [id number] 20mg Take 1 tablet (20 mg total) by mouth 2 times daily Seema patricia Valsartan 160 MG oral Tablet 2021-02 00:00: 00 Yes [id number] 160mg Take 1 tablet (160 mg total) by mouth daily Seema patricia Metoprolol Succinate 50 MG oral TABLET SR 24 HR 2021-02 0-12 00:00: 00 Yes [id number] 50mg Take 1 tablet (50 mg total) by mouth daily Seema patricia Valsartan 160 MG oral Tablet 2021-02 0-12 00:00: 00 Yes [id number] 160mg Take 1 tablet (160 mg total) by mouth daily Seema patricia Metoprolol Succinate 50 MG oral TABLET SR 24 HR 2021-02 0- 00:00: 00 Yes [id number] 50mg Take 1 tablet (50 mg total) by mouth daily Seema patricia Metoprolol Succinate 50 MG oral TABLET SR 24 HR 2021-02 0- 00:00: 00 12-09 00:00 :00 No [id number] 50mg Take 1 tablet (50 mg total) by mouth daily Seema patricia Famotidine (Pepcid) 20 MG oral tablet 2021-02 0 00:00: 00 06-08 00:00 :00 No [id number] 20mg Take 1 tablet (20 mg total) by mouth 2 times daily Seema patricia Metoprolol Succinate 50 MG oral TABLET SR 24 HR 9-09 00:00: 00 12-08 00:00 :00 No [id number] Take 1 tablet by mouth once daily Seema patricia Valsartan 160 MG oral Tablet 7-05 00:00: 00 12-08 00:00 :00 No 160mg Take 1 tablet (160 mg total) by mouth daily Seema patricia Cetirizine 10 MG oral Tablet 06-30 13:48: 34 Yes 10mg Take 10 mg by mouth daily Seema Pollack Ibuprofen (MOTRIN OR) 06-30 13:48: 34 Yes Take by mouth Seema Pollack Gabapentin 300 MG oral Capsule 06-30 00:00: 00 Yes [id number] 1 po q HS x 7 days, then 1 po BID x 7 days, then 1 po TID Seema Pollack Methocarbam ol (Robaxin) 500 MG oral Tablet 06-30 00:00: 00 Yes [id number] Half to 1 tablet p.o. 3 times daily as needed muscle spasms and pain Seema Pollack Gabapentin 300 MG oral Capsule 06-30 00:00: 00 12-08 00:00 :00 No [id number] 1 po q HS x 7 days, then 1 po BID x 7 days, then 1 po TID Seema patricia Methocarbam ol (Robaxin) 500 MG oral Tablet 06-30 00:00: 00 12-08 00:00 :00 No [id number] Half to 1 tablet p.o. 3 times daily as needed muscle spasms and pain Seema patricia Cetirizine (ZyrTEC Allergy) 10 MG oral Tablet 2020-02 09:00: 17 Yes 10mg Take 10 mg by mouth daily Seema Pollack Ibuprofen (MOTRIN OR) 2020-02 09:00: 17 Yes Take by mouth Seema Pollack Norethin-Et h Estrad-Fe Biphas (Lo Loestrin Fe) 1 MG-10 MCG / 10 MCG oral Tablet 2020-02 09:00: 17 Yes 1{tbl} Take 1 tablet by mouth Seema Pollack Norethin-Et h Estrad-Fe Biphas (Lo Loestrin Fe) 1 MG-10 MCG / 10 MCG oral Tablet 2020-02 09:00: 17 Yes 1{tbl} Take 1 tablet by mouth Seema Pollack acetaZOLAMI DE 250 MG oral Tablet 2020-02 00:00: 00 Yes [id number] 250mg Take 1 tablet (250 mg total) by mouth 3 times daily Start 1-2 days prior to ascent and continue for at least 5 days at higher altitude Seema Pollack acetaZOLAMI DE 250 MG oral Tablet 2020-02 00:00: 00 Yes [id number] 250mg Take 1 tablet (250 mg total) by mouth 3 times daily Start 1-2 days prior to ascent and continue for at least 5 days at higher altitude Seema Pollack acetaZOLAMI DE 250 MG oral Tablet 2020-02 00:00: 00 12-08 00:00 :00 No [id number] 250mg Take 1 tablet (250 mg total) by mouth 3 times daily Start 1-2 days prior to ascent and continue for at least 5 days at higher altitude Seema patricia Valsartan 160 MG oral Tablet 2020-02 0 00:00: 00 Yes 160mg Take 1 tablet (160 mg total) by mouth daily Seema Pollack Valsartan 160 MG oral Tablet 2020-02 0 00:00: 00 Yes 160mg Take 1 tablet (160 mg total) by mouth daily Seema Pollack Metoprolol Succinate 50 MG oral TABLET SR 24 HR 8 00:00: 00 Yes [id number] 50mg Take 1 tablet (50 mg total) by mouth daily Seema Pollack Metoprolol Succinate 50 MG oral TABLET SR 24 HR 10-13 00:00: 00 Yes [id number] 50mg Take 1 tablet (50 mg total) by mouth daily Seema Pollack Augmentin Augmentin 2017-02 00:00: 00 Yes Nora Wallace 1 tablet Comm on [facility] Lo Loestrin Fe Lo Loestrin Fe Yes Nora Wallace 1 tablet Common [facility] Toprol XL Toprol XL Yes Nora Wallace n ot defined [facility] Immunizations Ordered Immunization Name Filled Immunization Name Date Status Comments Source Influenza Virus Vaccine, age 6 months and up 2021-12-08 00:00:00 Completed Seema Pollack - External Pneumococcal Vaccine, Polysaccharide 2021-12-08 00:00:00 Completed Seema Pollack - External Influenza Virus Vaccine, age 6 months and up 2021-12-08 00:00:00 Completed Seema Pollack - External Pneumococcal Vaccine, Polysaccharide 2021-12-08 00:00:00 Completed Seema Pollack - External Influenza Virus Vaccine, age 6 months and up 2021-12-08 00:00:00 Completed Seema Pollack - External Pneumococcal Vaccine, Polysaccharide 2021-12-08 00:00:00 Completed Seema Pollack - External Tdap- (Boostrix, Adacel) 2018-11-20 00:00:00 Completed Seema Pollack - External Tdap- (Boostrix, Adacel) 2018-11-20 00:00:00 Completed Seema Seybold - External Tdap- (Boostrix, Adacel) 2018-11-20 00:00:00 Completed Seema Seybold - External Tdap- (Boostrix, Adacel) 2018-11-20 00:00:00 Completed Seema Seybold Tdap- (Boostrix, Adacel) 2018-11-20 00:00:00 Completed Seema Seybold Tdap- (Boostrix, Adacel) Unknown Completed Seema Groveybold - External Influenza Virus Vaccine, age 6 months and up Unknown Completed Seema Groveybold - External Pneumococcal Vaccine, Polysaccharide Unknown Completed Seema Hurst d - External Influenza, Injectable, Mdck, Quadrivalent With Preservative Unknown Completed Seema Groveybold - External Vital Signs Vital Name Observation Time Observation Value Comments S ource Systolic blood pressure 2022-12-09 15:46:00 107 mm[Hg] Seema Seybo ld - External Diastolic blood pressure 2022-12-09 15:46:00 66 mm[Hg] Seema ybo ld - External Heart rate 2022-12-09 15:46:00 69 /min Kelse y Seybold - External Respiratory rate 2022-12-09 15:46:00 15 /min Seema Seybold - External Body height 2022-12-09 15:46:00 160 cm Alexandria hagan Seybold - External Body weight 2022-12-09 15:46:00 61.236 kg Alexandria bentley Seybold - External BMI 2022-12-09 15:46:00 23.91 kg/m2 Alexandria ey Seybold - External Oxygen saturation in Arterial blood by Pulse oximetry 2022-12-09 15:46:00 99 /min Seema Seybo ld - External Systolic blood pressure 2022-06-08 16:19:00 104 mm[Hg] Seema Seybo ld - External Diastolic blood pressure 2022-06-08 16:19:00 60 mm[Hg] Seema Seybo ld - External Heart rate 2022-06-08 16:19:00 89 /min Kelse y Seybold - External Body temperature 2022-06-08 16:19:00 37.44 Iraida Seema Seybold - External Respiratory rate 2022-06-08 16:19:00 14 /min Seema Seybold - External Body height 2022-06-08 16:19:00 160 cm Alexandria ey Seybold - External Body weight 2022-06-08 16:19:00 63.866 kg Alexandria ey Seybold - External BMI 2022-06-08 16:19:00 24.94 kg/m2 Alexandria ey Seybold - External Oxygen saturation in Arterial blood by Pulse oximetry 2022-06-08 16:19:00 99 /min Seema Seybo ld - External Systolic blood pressure 2021-12-08 13:37:00 116 mm[Hg] Seema Seybo ld - External Diastolic blood pressure 2021-12-08 13:37:00 74 mm[Hg] Seema Seybo ld - External Heart rate 2021-12-08 13:37:00 56 /min Clement y Seybold - External Body temperature 2021-12-08 13:37:00 36.39 Iraida Seema Seybold - External Respiratory rate 2021-12-08 13:37:00 15 /min Seema Seybold - External Body height 2021-12-08 13:37:00 160 cm Alexandria ey Seybold - External Body weight 2021-12-08 13:37:00 63.957 kg Alexandria ey Seybold - External BMI 2021-12-08 13:37:00 24.98 kg/m2 Alexandria ey Seybold - External Oxygen saturation in Arterial blood by Pulse oximetry 2021-12-08 13:37:00 99 /min Seema Seybo ld - External Body temperature 2021-06-30 18:45:00 37.06 Iraida Seema Seybold Body height 2021-06-30 18:45:00 161.3 cm Alexandria ey Seybold Body weight 2021-06-30 18:45:00 63.504 kg Alexandria ey Seybold BMI 2021-06-30 18:45:00 24.41 kg/m2 Alexandria ey Seybold Systolic blood pressure 2021-02-01 14:57:00 127 mm[Hg] Seema Seybo ld Diastolic blood pressure 2021-02-01 14:57:00 76 mm[Hg] Seema Seybo ld Body temperature 2021-02-01 14:57:00 36.72 Iraida Seema Pollack Body height 2021-02-01 14:57:00 160 cm Alexandria Pollack Body weight 2021-02-01 14:57:00 62.869 kg Alexandria Pollack BMI 2021-02-01 14:57:00 24.55 kg/m2 Alexandria hagan Sebrittneykeren Procedures Procedure Date / Time Performed Performing Clinicia n Source CBC WITH DIFFERENTIAL 2022-06-23 13:07:00 Natacha Gould nd - External Encounters Start Date/Time End Date/Time Encounter Type Admission Type Attending [facility] Care Department Encounter ID Source 2022-12-26 00:00:00 2022-12-26 00:00:00 Outpatient GC_GCBZW_Ka diyala_S PRIV PRIV [id number] [facility] 2022-12-20 00:00:00 2022-12-20 00:00:00 Outpatient GC_GCBZW_Ka diyala_S PRIV PRIV [id number] [facility] 2022-12-09 11:00:00 2022-12-09 11:00:00 Outpatient ELIZABETH GOULD [id number] [facility] 2022-12-08 00:00:00 2022-12-08 00:00:00 Outpatient ELIZABETH GOULD [id number] [facility] 2022-07-22 00:00:00 2022-07-22 00:00:00 Outpatient SHELLI SAUER [id number] Seema aquilino 2022-07-15 08:55:00 2022-07-15 08:55:00 Outpatient LAB90 SEEMA MITCHELL [id number] Seema Pollack 2022-07-15 00:00:00 2022-07-15 00:00:00 Outpatient ELIZABETH GOULD [id number] Seema Pollack 2022-07-11 00:00:00 2022-07-11 00:00:00 Outpatient ELIZABETH GOULD [id number] [facility] 2022-06-29 00:00:00 2022-06-29 00:00:00 Outpatient PREZAS, ELIZABETH MITCHELL [id number] Seema Seybkeren 2022-06-28 00:00:00 2022-06-28 00:00:00 Outpatient PREZAS, ELIZABETH MITCHELL [id number] Seema [facility] 2022-06-23 09:15:00 2022-06-23 09:15:00 Outpatient LAB47 SEEMA GALVANSEY [id number] Seema [facility] 2022-06-23 08:30:00 2022-06-23 08:30:00 Outpatient SEEMA SE[facility] [id number] [facility] 2022-06-23 00:00:00 2022-06-23 00:00:00 Outpatient PREZAS, ELIZABETH MITCHELL SEEMA [id number] [facility] 2022-06-23 00:00:00 2022-06-23 00:00:00 Outpatient PREZAS, ELIZABETH MITCHELL SEEMA [id number] [facility] 2022-06-20 00:00:00 2022-06-20 00:00:00 Outpatient PREZAS, ELIZABETH MITCHELL SEEMA [id number] [facility] 2022-06-09 00:00:00 2022-06-09 00:00:00 Outpatient PREZAS, ELIZABETH MITCHELL SEEMA [id number] [facility] 2022-06-08 11:55:00 2022-06-08 11:55:00 Outpatient LAB90 SEEMA SEEMA [id number] [facility] 2022-06-08 11:15:00 2022-06-08 11:15:00 Outpatient PREZAS, ELIZABETH MITCHELL SEEMA [id number] [facility] 2022-04-27 00:00:00 2022-04-27 00:00:00 Outpatient PREZAS, ELIZABETH SEEMA SEEMA [id number] [facility] 2021-12-22 00:00:00 2021-12-22 00:00:00 Outpatient PREZAS, ELIZABETH SEEMA MITCHELL [id number] [facility] 2021-12-16 00:00:00 2021-12-16 00:00:00 Outpatient ELIZABETH GOULD SEEMA [id number] Seema Pollack 2021-12-08 09:40:00 2021-12-08 09:40:00 Outpatient COY MITCHELL SEEMA [id number] Seema Pollack 2021-12-08 08:30:00 2021-12-08 08:30:00 Outpatient ELIZABETH GOULDSULEMAN MITCHELL [id number] Seema Pollack 2021-09-20 10:30:00 2021-09-20 10:30:00 Outpatient CLARA JONES SEEMA MITCHELL [id number] Seema Pollack 2021-06-30 14:00:00 2021-06-30 14:30:00 Office Visit RobertKatherineanai Shepherd [facility] [id number] Seema Pollack 2021-05-17 00:00:00 2021-05-17 00:00:00 Outpatient KENYA BROWN SEEMA MITCHELL [id number] Seema Pollack 2021-03-04 00:00:00 2021-03-04 00:00:00 Outpatient KEVINKENYA SEEMA MITCHELL [id number] Seema Pollack 2021-02-16 00:00:00 2021-02-16 00:00:00 Outpatient KEVIN KENYAMELODIE MITCHELL [id number] Seema Pollack 2021-02-08 08:00:00 2021-02-08 08:00:00 Outpatient KEVINKENYA STOVER SEEMA MITCHELL [id number] Seema Pollack 2021-02-01 09:00:00 2021-02-01 09:30:00 Office Visit Kenya Brown [place] ..[id number] Seema Pollack 2021-01-29 10:45:00 2021-01-29 10:45:00 Outpatient SEEMA MITCHELL [id number] [facility] 2021-01-29 09:30:00 2021-01-29 09:30:00 Outpatient SEEMA SEEMA [id number] [facility]ema [facility] 2021-01-29 08:30:00 2021-01-29 08:30:00 Outpatient SEEMA MITCHELL [id number] [facility]ema [facility] 2021-01-25 10:25:00 2021-01-25 10:25:00 Outpatient LAB90 SEEMA MITCHELL [id number] [facility] 2021-01-11 00:00:00 2021-01-11 00:00:00 Outpatient KENYA BROWN [id number] [facility] 2021-01-05 00:00:00 2021-01-05 00:00:00 Outpatient KENYA BROWN [id number] [facility] 2020-12-09 13:45:00 2020-12-09 13:45:00 Outpatient TRED47 SEEMA MITCHELL [id number] [facility] 2020-12-09 13:15:00 2020-12-09 13:15:00 Outpatient TRED47 SEEMA MITCHELL [id number] [facility] 2020-12-09 11:00:00 2020-12-09 11:00:00 Outpatient SEEMA MITCHELL [id number] [facility] 2020-12-09 10:30:00 2020-12-09 10:30:00 Outpatient LAB47 SEEMA MITCHELL [id number] [facility] 2020-12-09 08:00:00 2020-12-09 08:00:00 Outpatient SEEMA MITCHELL [id number] [facility] 2020-12-08 14:00:00 2020-12-08 14:00:00 Outpatient TRED47 SEEMA MITCHELL [id number] [facility] 2020-12-08 00:00:00 2020-12-08 00:00:00 Outpatient KENYA BROWN [id number] Seema Seybold 2020-12-07 00:00:00 2020-12-07 00:00:00 Outpatient KENYA BROWN [id number] Seema Seybold 2020-12-07 00:00:00 2020-12-07 00:00:00 Outpatient KENYA BROWN SEEMA MITCHELL [id number] [facility] 2020-12-04 00:00:00 2020-12-04 00:00:00 Outpatient GAETANO KAMARA SEEMA MITCHELL [id number] [facility] 2020-12-01 14:15:00 2020-12-01 14:15:00 Outpatient PB SEEMA MITCHELL [id number] [facility] 2020-12-01 13:45:00 2020-12-01 13:45:00 Outpatient GIANA COYLE SEEMA MITCHELL [id number] [facility] 2020-11-06 00:00:00 2020-11-06 00:00:00 Outpatient GAETANO KAMARA SEEMA MITCHELL [id number] [facility] 2020-11-06 00:00:00 2020-11-06 00:00:00 Outpatient AGA, GAETANO SEEMA MITCHELL [id number] [facility] 2020-11-05 00:00:00 2020-11-05 00:00:00 Outpatient AGA, GAETANO SEEMA MITCHELL [id number] [facility] 2020-11-04 15:15:00 2020-11-04 15:15:00 Outpatient SEEMA MITCHELL [id number] [facility] 2020-11-04 14:15:00 2020-11-04 14:15:00 Outpatient SEEMA MITCHELL [id number] [facility] 2020-10-27 10:45:00 2020-10-27 10:45:00 Outpatient AGA, GAETANONara MITCHELL [id number] [facility] 2020-10-26 00:00:00 2020-10-26 00:00:00 Outpatient AGA, GAETANODANIEL MITCHELL [id number] [facility] 2020-10-13 11:35:00 2020-10-13 11:35:00 Outpatient [id number] SEEMA MITCHELL [id number] [facility] 2020-10-13 11:30:00 2020-10-13 11:30:00 Outpatient LAB90 SEEMA SEEMA [id number] Seema Pollack 2020-10-13 10:45:00 2020-10-13 10:45:00 Outpatient GAETANO KAMARA SEEMA [id number] [facility] 2018-02-05 13:30:00 2018-02-05 13:30:00 Outpatient [facility] [id number] [facility] 2017-11-15 15:30:00 2017-11-15 15:30:00 [facility] [id number] [facility] 2017-08-15 11:00:00 2017-08-15 11:00:00 Out[facility] [id number] [facility] 2017-07-23 20:19:00 2017-07-23 20:19:00 Outpatient [facility] [id number] [facility] 2017-07-12 15:00:00 2017-07-12 15:00:00 Outpatient [facility] [id number] [facility]
[2023-04-17 20:54] LABS: Absolute Lymphocytes (CBC) 2.1 K/uL (0.7-4.9); Hematocrit 34.9 % (36.0-45.0); Lymphocytes % 24.6 % (15.3-44.8); MCV 90.6 fL (80-100); MPV 7.7 fL (7.6-11.3); Platelets 295 thou/uL (152-406); RBC Red Blood Cell Count 3.85 M/uL (3.86-4.86)
[2023-04-17 20:56] LABS: Protime INR 1.07
[2023-04-17 21:21] LABS: Thyroid Stimulating Hormone 1.64 uIU/mL (0.358-3.740)
[2023-04-17 21:22] LABS: ALT/SGPT 21 U/L (13-56); AST/SGOT 14 U/L (15-37); Albumin 3.6 g/dL (3.4-5.0); Alkaline Phosphatase 38 U/L (45-117); BUN Blood Urea Nitrogen 19 mg/dL (7-18); Bicarbonate 24 mEq/L (21-32); Bilirubin Total 0.3 mg/dL (0.2-1.0); Glomerular Filtration Rate 92 ml/min (=/>90); Glucose Level 92 mg/dL (74-106); NT PRO-BNP 56 pg/mL (<125); Potassium 3.4 mEq/L (3.5-5.1); Protein, Total 6.9 g/dL (6.4-8.2); Sodium Level 138 mEq/L (136-145); Troponin High Sensitivity 6.1 pg/mL (<58.9)
[2023-04-17 21:23] LABS: Bilirubin Direct < 0.1 mg/dL (0-0.2); Bilirubin Indirect, Calculated ND mg/dL (0.2-0.8)
--- NOTE | 2023-04-17 21:38 | RAD REPORT ---
EXAM DESCRIPTION: Keith Single View04/17/2023 8:57 pm CLINICAL HISTORY: CHEST PAIN COMPARISON: No comparisons TECHNIQUE: Portable AP view of the chest. FINDINGS: The lungs are clear. No pneumothorax or effusion. The cardiomediastinal contours are unre markable. IMPRESSION: No acute cardiopulmonary process.
--- NOTE | 2023-04-17 22:51 | RAD REPORT ---
EXAM DESCRIPTION: CT - Angio Aorta For Dissection - 04/17/2023 10:14 pm CLINICAL HISTORY: chest pain , eval for dissection COMPARISON: Chest Single View dated 04/17/2023 TECHNIQUE: Thin axial CT images of the chest, abdomen, and pelvis were obtained during administratio n of 135 mL Isovue 370 IV contrast. Sagittal and coronal reconstructions as well as maximal intensity projection reconstruction were generated and reviewed per an aortic angiography protocol. All CT scans are performed using dose optimization technique as appropriate and may include automated exposure control or mA/KV adjustment according to patient size. FINDINGS: Aorta is normal in diameter with no dissection or other acute aortic findings. Reconstruct ion images show no significant findings. Pulmonary arteries are normal as well. No mass or infiltrate in the lung parenchyma. No pleural thickening, pleural effusion or pneumothorax . No abnormal mediastinal or hilar mass or lymphadenopathy seen. No chest wall mass or abnormal axillar y lymphadenopathy. Celiac, SMA and renal arteries show no suspicious findings. Solid abdominal viscera and bowel show no significant findings. No mass or abnormal lymphadenopathy. IMPRESSION: No acute abnormalities on CT angiogram of the aorta. No other significant findings on chest, abdomen and pelvis examination.
--- NOTE | 2023-04-17 23:21 | EDPHYS ---
Physician Documentation [facility] Name: Melvi Garcia Age: 47 yrs Sex: Female : 1975 Arrival Date: 04/17/2023 Time: 19:58 Bed 7 Private MD: ED Physician Wyatt Floyd HPI: 04/17 20:03 This 47 yrs old Female presents to ER via Unassigned with complaints of Chest sp4 Pain, High Blood Pressure. 21:06 . sp4 21:19 a 47-year-old female presents with acute onset midsternal chest pressure, at rest sp4 starting 1 hour ago prior to her arrival. Patient reports midsternal chest pressure with radiation to the anterior neck. Pain has gotten a little bit worse since onset 1 hour prior to arrival. There were no palpitations, no other signs such as diaphoresis or dyspnea. Patient has history of hypertension she takes Toprol XL 25 mg daily and losartan 50 mg daily also Zyrtec daily, she has history of hysterectomy.. . 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 - Social history:: Smoking status: Patient denies any tobacco usage or history of. Patient uses alcohol, Patient/guardian denies using street drugs. - Family history:: not pertinent. ROS: 21:06 Constitutional: Negative for fever, chills, and weight loss, Eyes: Negative for injury, sp4 pain, redness, and discharge, ENT: Negative for injury, pain, and discharge, Neck: Negative for injury, pain, and swelling, Cardiovascular: Positive chest pain 21:06 All other systems are negative, Exam: 21:04 Constitutional: This is a well developed, well nourished patient who is awake, alert, sp4 and in no acute distress. Head/Face: Normocephalic, atraumatic. Eyes: Pupils equal round and reactive to light, extra-ocular motions intact. Lids and lashes normal. Conjunctiva and sclera are not injected. Cornea within normal limits. Periorbital areas with no swelling, redness, or edema. ENT: Nares patent. No nasal discharge, no septal abnormalities noted. Tympanic membranes are normal and external auditory canals are clear. Oropharynx with no redness, swelling, or masses, exudates, or evidence of obstruction, uvula midline. Mucous membranes moist. Neck: Trachea midline, no thyromegaly or masses palpated, and no cervical lymphadenopathy. Supple, full range of motion without nuchal rigidity, or vertebral point tenderness. Chest/axilla: Normal chest wall appearance and motion. Nontender with no deformity. No lesions are appreciated. Cardiovascular: Regular rate and rhythm with a normal S1 and S2. No gallops, murmurs, or rubs. Normal PMI, no JVD. No pulse deficits. Respiratory: Lungs have equal breath sounds bilaterally, clear to auscultation and percussion. No rales, rhonchi or wheezes noted. No increased work of breathing, no retractions or nasal flaring. Abdomen/GI: Soft, with normal bowel sounds. No distension or tympany. No guarding or rebound. No evidence of tenderness throughout. Back: No spinal tenderness. No costovertebral tenderness. Skin: Warm, dry with normal turgor. Normal color with no rashes, no lesions, and no evidence of cellulitis. MS/ Extremity: Pulses equal, no cyanosis. Neurovascular intact. Full, normal range of motion. Neuro: Awake and alert, GCS 15, oriented to person, place, time, and situation. Cranial nerves II-XII grossly intact. Motor strength 5/5 in all extremities. Sensory grossly intact. Psych: Awake, alert, with orientation to person, place and time. Behavior, mood, and affect are within normal limits 21:04 ECG was reviewed by the Attending Physician. 20:57 49 bpm Sinus bradycardia Vital Signs: 20:06 BP 154 / 109; Pulse 68; Resp 16; Temp 98.3(TE); Pulse Ox 99% on R/A; Weight 61.23 kg km8 (R); Height 5 ft. 3 in. (R); Pain 5/10; 21:53 BP 120 / 83; Pulse 52; Resp 15 S; Pulse Ox 100% on R/A; jw7 23:37 BP 115 / 81; Pulse 59; Resp 16 S; Pulse Ox 100% on R/A; as6 20:06 Body Mass Index 23.91 (61.23 kg, 160.02 cm) [facility] 20:06 Pain Scale: Adult km8 MDM: 20:04 Patient medically screened. sp4 21:42 Differential diagnosis: acute pericarditis, anxiety, coronary artery disease chest wall sp4 pain, costochondritis, esophagitis, gastritis. HEART Score: History: Moderately Suspicious (1), ECG: Normal (0), Age: > 45 and < 65 years (1), Risk Factors: 1 or 2 risk factors (1), Troponin: < or = 1 x Normal Limit (0), Total Score = 3. Data reviewed: vital signs, nurses notes, lab test result(s), EKG, radiologic studies, CT scan, plain films. 21:43 ED course: EXAM DESCRIPTION: [facility] Single View04/17/2023 8:57 pm CLINICAL HISTORY: sp4 CHEST PAIN COMPARISON: No comparisons TECHNIQUE: Portable AP view of the chest. FINDINGS: The lungs are clear. No pneumothorax or effusion. The cardiomediastinal contours are unremarkable. IMPRESSION: No acute cardiopulmonary process.. 23:18 ED course: EXAM DESCRIPTION: CT - Angio Aorta For Dissection - 04/17/2023 10:14 pm sp4 CLINICAL HISTORY: chest pain , eval for dissection COMPARISON: Chest Single View dated 04/17/2023 TECHNIQUE: Thin axial CT images of the chest, abdomen, and pelvis were obtained during administration of 135 mL Isovue 370 IV contrast. Sagittal and coronal reconstructions as well as maximal intensity projection reconstruction were generated and reviewed per an aortic angiography protocol. All CT scans are performed using dose optimization technique as appropriate and may include automated exposure control or mA/KV adjustment according to patient size. FINDINGS: Aorta is normal in diameter with no dissection or other acute aortic findings. Reconstruction images show no significant findings. Pulmonary arteries are normal as well. No mass or infiltrate in the lung parenchyma. No pleural thickening, pleural effusion or pneumothorax. No abnormal mediastinal or hilar mass or lymphadenopathy seen. No chest wall mass or abnormal axillary lymphadenopathy. Celiac, SMA and renal arteries show no suspicious findings. Solid abdominal viscera and bowel show no significant findings. No mass or abnormal lymphadenopathy. IMPRESSION: No acute abnormalities on CT angiogram of the aorta. No other significant findings on chest, abdomen and pelvis examination.. 04/17 20:04 Order name: Basic Metabolic Panel; Complete Time: 23:10 04/17 20:04 Order name: CBC with Diff; Complete Time: 21:04/17 20:04 Order name: LFT's; Complete Time: 23:04/17 20:04 Order name: Magnesium; Complete Time: 23:04/17 20:04 Order name: NT PRO-BNP; Complete Time: 23:04/17 20:04 Order name: PT-INR; Complete Time: :04/17 20:04 Order name: Troponin HS; Complete Time: 23:04/17 20:28 Order name: TSH; Complete Time: :04/17 20:28 Order name: T4 Free; Complete Time: :04/17 20:04 Order name: XRAY Chest (1 view); Complete Time: 23:04/17 20:28 Order name: CT Aorta for Dissection; Complete Time: 23:04/17 20:04 Order name: EKG; Complete Time: 20:05 04/17 20:04 Order name: Cardiac monitoring; Complete Time: 20:32 04/17 20:04 Order name: EKG - Nurse/Tech; Complete Time: 21:00 04/17 20:04 Order name: IV Saline Lock; Complete Time: 21:07 04/17 20:04 Order name: Labs collected and sent; Complete Time: 21:00 04/17 20:04 Order name: O2 Per Protocol; Complete Time: 20:32 04/17 20:04 Order name: O2 Sat Monitoring; Complete Time: 20:32 sp4 EC:04 Rate is 49 beats/min. Rhythm is regular, Sinus bradycardia. QRS [place] is Normal. [place] sp4 interval is normal. QRS interval is normal. QT interval is normal. No Q waves. T waves are Normal. No ST changes noted. Clinical impression: No evidence of ischemia. Interpreted by me. Reviewed by me. Administered Medications: 20:47 Drug: NS 0.9% IV 500 ml IV at bolus once Route: IV; Rate: bolus; Site: right bp antecubital; 23:36 Follow up: Response: No adverse reaction; IV Status: Completed infusion; IV Intake: as6 500ml Disposition Summary: 04/17/23 23:20 Discharge Ordered Problem: new sp4 Symptoms: have improved sp4 Condition: Stable sp4 Diagnosis - Chest pain, unspecified sp4 Followup: sp4 - With: Private Physician - When: 10 - 14 days - Reason: Recheck today's complaints Followup: sp4 - With: Rafiq Lucas MD - When: 10 - 14 days - Reason: Recheck today's complaints Discharge Instructions: - Discharge Summary Sheet sp4 - Nonspecific Chest Pain, Adult, [id number] sp4 Forms: - Patient Portal Instructions sp4 Signatures: Dispatcher [employer] Ariel Clemens RN RN Wyatt Perez MD MD sp4 Rachel Baltazar RN RN km8 Noah Hurtado RN as6 Corrections: (The following items were deleted from the chart) 20:10 20:09 PSHx: None; sai km8
--- NOTE | 2023-04-17 23:21 | ER ---
Nurse's Notes [facility] Name: Melvi Garcia Age: 47 yrs Sex: Female : 1975 Arrival Date: 04/17/2023 Time: 19:58 Bed 7 Private MD: Diagnosis: Chest pain, unspecified Presentation: 04/17 20:06 Chief complaint: Patient states: chest pain starting about 45 mins with HTN; denies km8 SOB, nausea, or sweating; Hx of HTN. Coronavirus screen: Client denies travel out of the [place] in the last 14 days. Ebola Screen: No symptoms or risks identified at this time. Initial Sepsis Screen: Does the patient meet any 2 criteria? No. Patient's initial sepsis screen is negative. Does the patient have a suspected source of infection? No. Patient's initial sepsis screen is negative. Risk Assessment: Do you want to hurt yourself or someone else? Patient reports no desire to harm self or others. Onset of symptoms was April 17, 2023 at 19:15. 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 - Social history:: Smoking status: Patient denies any tobacco usage or history of. Patient uses alcohol, Patient/guardian denies using street drugs. - Family history:: not pertinent. Screenin:37 [facility] ED Fall Risk Assessment (Adult) Score/Fall Risk Level 0 - 2 = Low Risk. Abuse as6 screen: Denies threats or abuse. Denies injuries from another. Nutritional screening: No deficits noted. Tuberculosis screening: No symptoms or risk factors identified. Assessment: 20:15 General: Appears in no apparent distress. uncomfortable, Behavior is calm, cooperative. jw7 20:15 Pain: Complains of pain in chest Neck Pain currently is 6 out of 10 on a pain scale. jw7 Quality of pain is described as pressure, squeezing, Pain began 2 hours ago. Is continuous. Neuro: Au Agitation-Sedation Scale (RASS): 0 - Alert and Calm Level of Consciousness is awake, alert, obeys commands, Oriented to person, place, time, situation. Cardiovascular: Reports chest pain, Heart tones S1 S2 present Capillary refill < 3 seconds Clubbing of nail beds is absent JVD is absent Patient's skin is warm and dry. Rhythm is sinus bradycardia. Respiratory: Airway is patent Trachea midline Respiratory effort is even, unlabored, Respiratory pattern is regular, symmetrical. GI: No deficits noted. No signs and/or symptoms were reported involving the gastrointestinal system. : No deficits noted. No signs and/or symptoms were reported regarding the genitourinary system. EENT: No deficits noted. No signs and/or symptoms were reported regarding the EENT system. Derm: Skin is intact, is healthy with good turgor, Skin is dry, Skin is normal, Skin temperature is warm. Musculoskeletal: Circulation, motion, and sensation intact. Range of motion: intact in all extremities. 21:53 Reassessment: Patient appears in no apparent distress at this time. Patient and/or jw7 family updated on plan of care and expected duration. Pain level reassessed. Patient is alert, oriented x 3, equal unlabored respirations, skin warm/dry/pink. Vital Signs: 20:06 BP 154 / 109; Pulse 68; Resp 16; Temp 98.3(TE); Pulse Ox 99% on R/A; Weight 61.23 kg km8 (R); Height 5 ft. 3 in. (R); Pain 5/10; 21:53 BP 120 / 83; Pulse 52; Resp 15 S; Pulse Ox 100% on R/A; jw7 23:37 BP 115 / 81; Pulse 59; Resp 16 S; Pulse Ox 100% on R/A; as6 20:06 Body Mass Index 23.91 (61.23 kg, 160.02 cm) km8 20:06 Pain Scale: Adult 8 ED Course: 20:00 Patient arrived in ED. jj6 20:03 Wyatt Floyd MD is Attending Physician. sp4 20:08 Triage completed. km8 20:09 Arm band placed on right wrist. km8 20:29 Ariel Eastman, RN is Primary Nurse. bp 20:58 XRAY Chest (1 view) In Process Unspecified. EDMS 22:16 CT Aorta for Dissection In Process Unspecified. EDMS 23:21 Rafiq Lucas MD is Referral Physician. sp4 23:37 Placed in gown. Bed in low position. Call light in reach. Side rails up X2. Provided as6 Education on: follow up. 23:38 No provider procedures requiring assistance completed. IV discontinued, intact, as6 bleeding controlled, No redness/swelling at site. Pressure dressing applied. Administered Medications: 20:47 Drug: NS 0.9% IV 500 ml IV at bolus once Route: IV; Rate: bolus; Site: right bp antecubital; 23:36 Follow up: Response: No adverse reaction; IV Status: Completed infusion; IV Intake: as6 500ml Medication: 23:37 VIS not applicable for this client. as6 Intake: 23:36 IV: 500ml; Total: 500ml. as6 Outcome: 23:20 Discharge ordered by . sp4 23:38 Discharged to home ambulatory, with significant other, as6 23:38 Condition: stable 23:38 Discharge instructions given to patient, Instructed on discharge instructions, follow up and referral plans. Demonstrated understanding of instructions, follow-up care, 23:38 Patient left the ED. as6 Signatures: Dispatcher [employer] EDMS Ariel Eastman, RN RN Radha Valladares jj6 Noah Hurtado RN RN as6 Billie Melgar RN Wyatt Gates MD MD spRachel Reyna RN RN km8 Corrections: (The following items were deleted from the chart) 20:10 20:09 PSHx: None; km8 km8
[2023-04-17 23:52] VITALS: BP 115/81; TEMP 98.3; O2SAT 100
== END ==
LOC: ER 19:58
DX: R07.9 Chest pain, unspecified (principal); I10 Essential (primary) hypertension
CPT/HCPCS: 96361; 85025; 80048; 36415; 83735; 85610; 80076; 84443; 84484; 84439; 83880; 71275; 74175; 71045; 96360; 99284; Q9967; J7040; 93005